=== PATIENT | male | born 1985 | race Caucasian/White ===

== ENCOUNTER 2016-11-29 22:47 | Emergency (ER) | payer OTHER ==
[~2016-11-29] VITALS: Ht 188 cm; Wt 90.7 kg
[2016-11-30] MEDS ORDERED: AUGMENTIN875 MG PO (02:00)
[2016-11-30] MEDS ORDERED: PREDNISONE20 MG PO (02:00)
[2016-11-30 02:12] VITALS: BP 131/68
== END 2016-11-30 02:13 | disposition home or self-care (01) ==
LOC: EME 22:47
DX: J03.90 Acute tonsillitis, unspecified (principal); J32.9 Chronic sinusitis, unspecified
CPT/HCPCS: 70360; 70490; 87651 90; 99281; 99284; J1885